=== PATIENT | male | born 1965 | race Caucasian/White ===

== ENCOUNTER 2019-04-04 03:12 | Inpatient (IN) | payer OTHER ==
[2019-04-04] VITALS (7 sets, daily range): BP systolic 116–191; BP diastolic 63–102
[~2019-04-04] VITALS: Ht 182.9 cm; Wt 87.6 kg
--- NOTE | 2019-04-04 03:28 | NUR ---
PATIENT STATES HE CANNOT TURN THE VOICES OFF IN HIS HEAD
[2019-04-04] MEDS ORDERED: ASPIR 8181 MG PO (03:32)
[2019-04-04] MEDS ORDERED: KEPPRA1000 MG PO (03:33)
[2019-04-04] MEDS ORDERED: NALTREXONE HCL50 MG PO (03:33)
[2019-04-04] MEDS ORDERED: SYMBICORT160 MCG/4. INH (03:34)
[2019-04-04] MEDS ORDERED: TRILEPTAL300 MG PO (03:34)
[2019-04-04] MEDS ORDERED: TRIHEXYPHEN2 MG/5 ML PO (03:35)
[2019-04-04] MEDS ORDERED: MELATONIN5 M1 PO (03:35)
[2019-04-04] MEDS ORDERED: MIDODRINE HCL 55 M1 PO (03:35)
[2019-04-04] MEDS ORDERED: QUETIAPINE FUM100 MG PO (03:36)
[2019-04-04] MEDS ORDERED: TRAZODONE HCL100 MG PO (03:36)
[2019-04-04] MEDS ORDERED: NORCO 5-325 TA1 EAC1 PO (03:37)
--- NOTE | 2019-04-04 04:00 | NUR ---
ULTRASOUND TO BEDSIDE AT THIS TIME.
[2019-04-04 04:13] LABS: ABSOLUTE NEUTROPHILS 5.5 thou/uL (1.4-8.2); BASOPHILS 0.7 % (0.0-2.0); EOSINOPHILS 2.5 % (0.0-3.0); HEMATOCRIT 43.3 % (42.0-52.0); HEMOGLOBIN 14.8 gm/dL (14.0-18.0); LYMPHOCYTES 24.2 % (24.0-44.0); MCH 31.5 pg (26.0-34.0); MCHC 34.1 g/dL (28.0-37.0); MCV 92.4 fL (80.0-100.0); MONOCYTES 8.3 % (1.0-8.0); PLATELET COUNT 207 thou/uL (150-400); POLYS 64.3 % (36.0-66.0); RBC 4.68 mil/uL (4.50-6.00); RDW 12.7 % (10.5-14.5); WBC 8.5 thou/uL (4.0-11.0)
[2019-04-04 04:21] LABS: CALCIUM 9.8 mg/dL (8.5-10.1); CREATININE 0.9 mg/dL (0.7-1.3); POTASSIUM 3.4 mmol/L (3.5-5.1)
[2019-04-04 04:31] LABS: TROPONIN-I 0.08 ng/mL (<0.06)
--- NOTE | 2019-04-04 05:19 | NUR ---
PT STATED HE WAS HUNGRY SO THIS NURSE BROUGHT HIM A SANDWHICH FROM THE [facility]
--- NOTE | 2019-04-04 05:28 | NUR ---
PT TO CT
--- NOTE | 2019-04-04 06:51 | NUR ---
CCU NURSE CANNOT TAKE REPORT
--- NOTE | 2019-04-04 06:59 | NUR ---
HAND OFF HAS BEEN SENT
--- NOTE | 2019-04-04 07:12 | NUR ---
CALLED REPORT TO El ESTRADA, IN THE CCU
[2019-04-04 08:11] LABS: CHOLESTEROL 158 mg/dL (<200); HDL CHOLESTEROL 50 mg/dL (>40); LDL CHOLESTEROL 94 mg/dL (<100); TC:HDL 3.2 Ratio (Not establshd); TRIGLYCERIDE 73 mg/dL (<150); VLDL 15 mg/dL (<40)
--- NOTE | 2019-04-04 08:23 | EKG ---
[address] [address] ELECTROCARDIOGRAM REPORT Name: VILMA RODRIGUEZ Room #: 205-P ADM IN M.R.#: [id number] Admission: 04/04/19 Attend Phys: Macho Steen MD Discharge: Date of : 63 Report #: [id number] THIS REPORT FOR: //name// [facility] ED Test Date: 2019-04-04 Test Time: 03:19:52 Pat Name: VILMA RODRIGUEZ Department: Room: [facility] Gender: M Assistant Teacher Primary: RATNA : 1965 Requested By: Vilma Mays Order Number: [id number] MD: Gamaliel Washington Measurements Intervals [place] Rate: 71 P: 53 MO: 130 QRS: 4 QRSD: 90 T: 38 QT: 415 QTc: 451 Interpretive Statements Sinus rhythm Normal tracing No previous ECG available for comparison Electronically Signed On 04-04-2019 8:23:49 CDT by Gamaliel Washington [email or web address] <ELECTRONICALLY SIGNED> By: Gamaliel Washington MD, [facility] 04/04/19 0823 0319 0319 Gamaliel Washington MD, FACC /EPI
--- NOTE | 2019-04-04 10:24 | 2DMMODE ---
[facility] [address] [place] [address] 2 D/M-MODE ECHOCARDIOGRAM Name: IVLMA RODRIGUEZ Room #: 205-P [facility] IN .R.#: [id number] Admission: 04/04/19 Attend Phys: Macho Steen, Discharge: Date of : 63 Date of Service: 04/04/19 [facility] Report #: [id number] THIS REPORT FOR: //name// APPROVED REPORT Study performed: 04/04/2019 09:43:49 EXAM: Comprehensive 2D, Doppler, and color-flow Echocardiogram Patient Location: Bedside Room #: 205 Status: routine BSA: 2.09 HR: 59 bpm BP: 146/93 mmHg Rhythm: Bradycardia Other Information Study Quality: Good Indications COPD Chest Pain Hypertension/HDD 2D Dimensions RVDd: 41.04 mm IVSd: 9.96 (7-11mm) LVOT Diam: 21.07 (18-24mm) LVDd: 39.66 mm PWd: 9.80 (7-11mm) Ascending Ao: 34.80 (22-36mm) LVDs: 29.32 (25-40mm) Aortic Root: 33.13 mm Volumes Left Atrial Volume (Systole) Single Plane 4CH: 33.46 mL Single Plane 2CH: 34.16 mL LA ESV Index: 18.00 mL/m2 Aortic Valve AoV Peak Kip.: 1.20 m/s AO Peak Gr.: 5.74 mmHg LVOT Max P.66 mmHg LVOT Max V: 0.96 m/s CIELO Vmax: 2.78 cm2 Mitral Valve E/A Ratio: 0.8 [facility] [address] [place] [address] 2 D/M-MODE ECHOCARDIOGRAM Name: VILMA RODRIGUEZ Room #: 205-P [facility] IN .R.#: [id number] Admission: 04/04/19 Attend Phys: Macho Steen, Discharge: Date of : 63 Date of Service: 04/04/19 1024 Report #: [id number] MV Decel. Time: 260.74 ms MV E Max Kip.: 0.61 m/s MV A Kip.: 0.81 m/s MV PHT: 75.62 ms IVRT: 138.41 ms Pulmonary Valve PV Peak Kip.: 0.82 m/s PV Peak Gr.: 2.71 mmHg Pulmonary Vein P Vein S: 0.41 m/s P Vein A: 0.28 m/s P Vein D: 0.25 m/s P Vein A Dur.: 101.5 msec P Vein S/D Ratio: 1.64 Left Ventricle The left ventricle is normal size. There is normal LV segmental wall motion. There is normal left ventricular wall thickness. Left ventricular systolic function is normal. The left ventricular ejection fraction is within the normal range. LVEF is 55-60%. Grade I - abnormal relaxation pattern. Right Ventricle The right ventricle is normal size. The right ventricular systolic function is normal. Atria The left atrium size is normal. The right atrium size is normal. Aortic Valve The aortic valve is normal in structure. No aortic regurgitation is present. There is no aortic valvular stenosis. Mitral Valve The mitral valve is normal in structure. There is no mitral valve regurgitation noted. No evidence of mitral valve stenosis. Tricuspid Valve The tricuspid valve is normal in structure. There is no tricuspid valve regurgitation noted. Pulmonic Valve The pulmonary valve is normal in structure. There is no pulmonic valvular regurgitation. [employer] [facility] [address] [place] [address] 2 D/M-MODE ECHOCARDIOGRAM Name: VILMA RODRIGUEZ Room #: 205-P [facility] IN M.R.#: [id number] Admission: 04/04/19 Attend Phys: Macho Steen, Discharge: Date of : 63 Date of Service: 04/04/19 1024 Report #: [id number] The aortic root is normal in size. IVC is not well visualized. Pericardium There is no pericardial effusion. <Conclusion> The left ventricle is normal size. There is normal left ventricular wall thickness. Left ventricular systolic function is normal. Grade I - abnormal relaxation pattern. The right ventricle is normal size. The left atrium size is normal. The aortic valve is normal in structure. There is no mitral valve regurgitation noted. There is no tricuspid valve regurgitation noted. <ELECTRONICALLY SIGNED> By: Manish Menjivar MD 04/04/19 1024 1024 1024 Manish Menjivar MD /INF
[2019-04-04 15:24] LABS: URINE BILIRUBIN NEGATIVE (Negative); URINE BLOOD NEGATIVE (Negative); URINE CLARITY CLEAR; URINE COLOR YELLOW; URINE GLUCOSE-RANDOM* NEGATIVE (Negative); URINE KETONES NEGATIVE (Negative); URINE LEUKOCYTES-REFLEX NEGATIVE (Negative); URINE NITRITE-REFLEX NEGATIVE (Negative); URINE PROTEIN (DIPSTICK) NEGATIVE (Negative); URINE UROBILINOGEN 0.2 E.U./dl (0.2-1.0)
--- NOTE | 2019-04-04 16:06 | NUR ---
PT ADMITED FROM ER. ADMISSION HX AND ASSESSMENT COMPLETED. ORIENTED TO THE ROOM AND THE CALL LIGHT SYSTEM. ASSESSMENT CHARTED. PT ALERT AND ORIENTED. VSS. REPORT HAVING LOWER LEG PAIN WITH MOVEMENT. NO CARDIAC OR RESPIRATORY DISTRESS NOTED. WILL CONTINUE TO MONITOR.
[2019-04-05] VITALS (8 sets, daily range): BP systolic 126–171; BP diastolic 78–102
--- NOTE | 2019-04-05 02:48 | NUR ---
ASSESSMENT CHARTED. VSS. PT DENIES CONCERN. LEG PAIN OFF AND ON. LOVENOX PER EMAR. SLEEPING WELL THROUGHOUT THE NIGHT. WILL CONTINUE TO MONITOR AND WITH POC.
[2019-04-05 04:30] LABS: CALCIUM 9.2 mg/dL (8.5-10.1); CREATININE 1.1 mg/dL (0.7-1.3); MAGNESIUM 1.9 mg/dL (1.8-2.4); POTASSIUM 4.2 mmol/L (3.5-5.1)
[2019-04-05 04:43] LABS: ABSOLUTE NEUTROPHILS 4.3 thou/uL (1.4-8.2); BASOPHILS 0.7 % (0.0-2.0); HEMATOCRIT 41.8 % (42.0-52.0); HEMOGLOBIN 14.1 gm/dL (14.0-18.0); LYMPHOCYTES 29.9 % (24.0-44.0); MCH 31.9 pg (26.0-34.0); MCHC 33.7 g/dL (28.0-37.0); MCV 94.5 fL (80.0-100.0); MONOCYTES 8.2 % (1.0-8.0); PLATELET COUNT 213 thou/uL (150-400); POLYS 57.2 % (36.0-66.0); RBC 4.43 mil/uL (4.50-6.00); RDW 13.1 % (10.5-14.5); WBC 7.6 thou/uL (4.0-11.0)
[2019-04-05] MEDS ORDERED: XARELTO20 MG PO (10:08)
[2019-04-05] MEDS ORDERED: NORVASC5 MG PO (10:08)
--- NOTE | 2019-04-05 11:58 | NUR ---
met with patient he admits with CP elevated tropnin. Patient resident of [facility]. He reports he cont to smoke and ambulates independently. He reports can update his dtr she may be at work but can leave a message. Plan return to [facility] once stable. Sp with RN who reports plan dc today. DC operations planner to facilitate dc return to [facility].
--- NOTE | 2019-04-05 13:34 | NUR ---
PT DISCHARGING TODAY BACK TO [facility] FAXED DC ORDERS/SUMMARY TO FACILITY SPOKE WITH DENISE IN ADM SHE RECEIVED DC ORDERS AND TRANSPORTATION ARRANGED WITH [facility] TRIP # [id number] 2N TO PROVIDE WC FOR [facility] TO TAKE PT TO FACILITY AND THEY WILL RETURN WC BACK TO UNIT TODAY. UNIT NOTIFIED OF TRANSPORT TIME 3 HR WINDOW SO THEY WILL PICK PT UP BY 1530 TODAY. CHART COPY PER US. RN TO CALL REPORT TO [phone].
--- NOTE | 2019-04-05 17:54 | NUR ---
ASSESSMENT CHARTED. PT ALERT AND ORIENTED. VSS. REPORT FEELING BETTER TODAY. SEEN BY DR. FERRIS. ORDERS GIEVN TO DISCHARGE PT TO HOME. DISCHARGE INSTRUCTIONS CALLED IN TO THE FACILITY. PT LEFT THE FACILITY WITH HIS BELONGINGS.
== END 2019-04-05 17:54 | DRG 313 ==
LOC: ER 03:12 → 2N 06:24 → EROBS 06:24 → 2N 07:43
PROVIDERS: Emergency Medicine; Nurse Practitioner; ADMIT Hospitalist
DX: R07.89 Other chest pain (principal); I82.412 Acute embolism and thrombosis of left femoral vein; I82.432 Acute embolism and thrombosis of left popliteal vein; E87.1 Hypo-osmolality and hyponatremia; I10 Essential (primary) hypertension; E11.9 Type 2 diabetes mellitus without complications; J44.9 Chronic obstructive pulmonary disease, unspecified; G40.909 Epilepsy, unspecified, not intractable, without status epilepticus; F25.9 Schizoaffective disorder, unspecified; F41.9 Anxiety disorder, unspecified; R29.6 Repeated falls; I16.0 Hypertensive urgency; E87.6 Hypokalemia; F31.9 Bipolar disorder, unspecified; F17.210 Nicotine dependence, cigarettes, uncomplicated; Z79.82 Long term (current) use of aspirin; Z79.899 Other long term (current) drug therapy; Z88.8 Allergy status to other drugs, medicaments and biological substances; Z91.030 Bee allergy status; Z82.49 Family history of ischemic heart disease and other diseases of the circulatory system; Z71.6 Tobacco abuse counseling
CPT/HCPCS: 10081

== ENCOUNTER 2019-05-06 22:07 | Emergency (ER) | payer OTHER ==
[~2019-05-06] VITALS: Ht 182.9 cm; Wt 86.2 kg
[~2019-05-06 22:07] MED LIST: ASPIR 8181 MG PO; KEPPRA1000 MG PO; MELATONIN5 M1 PO; MIDODRINE HCL 55 M1 PO; NALTREXONE HCL50 MG PO; NORCO 5-325 TA1 EAC1 PO; NORVASC5 MG PO; QUETIAPINE FUM100 MG PO; SYMBICORT160 MCG/4. INH; TRAZODONE HCL100 MG PO; TRIHEXYPHEN2 MG/5 ML PO; TRILEPTAL300 MG PO; XARELTO20 MG PO
[2019-05-07 01:36] VITALS: BP 129/76
== END 2019-05-07 02:29 ==
LOC: ER 22:07
DX: M79.662 Pain in left lower leg (principal); J44.9 Chronic obstructive pulmonary disease, unspecified; F25.9 Schizoaffective disorder, unspecified; F41.9 Anxiety disorder, unspecified; F31.9 Bipolar disorder, unspecified; Z91.030 Bee allergy status; Z88.8 Allergy status to other drugs, medicaments and biological substances

== ENCOUNTER 2019-05-15 07:42 | Emergency (ER) | payer OTHER ==
[~2019-05-15] VITALS: Ht 182.9 cm; Wt 84.9 kg
[2019-05-15 08:07] LABS: HEMATOCRIT 40.3 % (42.0-52.0); HEMOGLOBIN 13.6 gm/dL (14.0-18.0); MCH 31.2 pg (26.0-34.0); MCHC 33.7 g/dL (28.0-37.0); MCV 92.3 fL (80.0-100.0); RBC 4.37 mil/uL (4.50-6.00); RDW 12.7 % (10.5-14.5); WBC 9.5 thou/uL (4.0-11.0)
[2019-05-15 08:15] LABS: CALCIUM 10.4 mg/dL (8.5-10.1); CREATININE 0.9 mg/dL (0.7-1.3); POTASSIUM 3.8 mmol/L (3.5-5.1)
[2019-05-15 08:21] LABS: ALBUMIN 3.7 g/dL (3.4-5.0); DIRECT BILIRUBIN 0.1 mg/dL (<0.1-0.3); TOTAL BILIRUBIN 0.3 mg/dL (<0.1-1.0); TOTAL PROTEIN 7.1 g/dL (6.4-8.2)
[2019-05-15] MEDS ORDERED: KRISTALOSE20 GM PO (10:48)
[2019-05-15 10:57] VITALS: BP 147/82
== END 2019-05-15 11:04 | disposition home or self-care (01) ==
LOC: ER 07:42
PROVIDERS: Emergency Medicine
DX: K59.00 Constipation, unspecified (principal); R10.9 Unspecified abdominal pain; R11.2 Nausea with vomiting, unspecified; F31.9 Bipolar disorder, unspecified; F41.9 Anxiety disorder, unspecified; F25.9 Schizoaffective disorder, unspecified; J44.9 Chronic obstructive pulmonary disease, unspecified; F17.210 Nicotine dependence, cigarettes, uncomplicated; Z91.030 Bee allergy status; Z88.8 Allergy status to other drugs, medicaments and biological substances

== ENCOUNTER 2019-06-09 17:11 | Emergency (ER) | payer OTHER ==
[~2019-06-09] VITALS: Ht 182.9 cm; Wt 83.5 kg
--- NOTE | ~2019-06-09 | EMS ---
[address] [address] EMS Patient Care Report Name: VILMA RODRIGUEZ Room #: REG KIYA Rousseau#: [id number] Admission: 06/09/19 Attend Phys: Discharge: Date of : 63 Report #: [id number] THIS REPORT FOR: //name// Report Transmitted: 06/09/2019 17:14 EMS Care Summary [place], [place]/[facility] Incident [phone] @ 06/09/2019 16:35 Incident Location [address] [facility] 312 Patient VILMA RODRIGUEZ Male, 54 Years 1965 Patient Address [address] [place], [place] [address] [place] [id number] Patient History Other,Chronic Obstructive Pulmonary Disease (COPD),Hypertension,Seizures,Gastro-Esophageal Reflux Disease (GERD),Bipolar II Disorder,Depression,Anxiety,Schizoaffective Disorder, Patient Allergies Prednisone, Patient Medications Aspirin, Trazodone, Xarelto, Tylenol, Symbicort, Levetiracetam, Melatonin, Amlodipine, Chief Complaint SOA Disposition Transported No Lights/Orange Dispatch Reason Breathing Problem Transported To [facility] [address] [place] [address] EMS Patient Care Report Name: VILMA RODRIGUEZ Room #: REG ER [place]#: [id number] Admission: 06/09/19 Attend Phys: Discharge: Date of : 63 Report #: [id number] PT FOUND LYING IN BED. [facility] P28 ALSO RESPONDED. PT STATES THAT HE IS SOA ND FEELS LIKE HE IS GOING TO . PT ALSO STATES THAT HIS R KNEE BUCKLED EARLIER AND IT HURTS. PT IS ABLE TO SPEAK IN COMPLETE SENTENCES WITHOUT DIFFICULTY. LUNGS ARE CLEAR. STAFF STATES PT CALLS 911 HIMSELF AND THREATENS STAFF WITH CALLING THE POLICE BECAUSE HE WANTS TO GO TO THE ED. STAFF STATES THAT PT VITALS HAVE BEEN CHECKED SEVERAL TIMES TODAY AND ALL FOUND TO BE WNL. STAFF STATES THAT THIS IS A BEHAVIORAL PATTERN FOR PT. STAFF STATES THAT PT WILL FORCE HIMSELF TO VOMIT IN THE TRASH CAN. TRANSPORTED WITHOUT INCIDENT. Initial Vitals @16:54P: 91,R: 18,BP: 156/110,Pain: 0/10,GCS: 15,Glucose: 87,SpO2: 94,Revised Trauma: 12,KS Suspected: false Assessments @16:44MENTAL:No Abnormalities,SKIN:No Abnormalities,HEENT:Head/Face: No Abnormalities,Eyes: No Abnormalities,Neck/Airway: No Abnormalities,LUNG SOUNDS:ABDOMEN:PELVIS//GI:EXTREMITIES:PULSE:NEURO:No Abnormalities, Impression Shortness of breath Procedures @16:44ALS AssessmentResponse: UnchangedSucceeded Timeline 16:32,Call Received 16:32,Dispatch Notified 16:35,Dispatched 16:36,En Route 16:40,On Scene 16:44,At Patient 16:44,ALS Assessment,Response: UnchangedSucceeded, 16:54,BP: 156/110 M,PULSE: 91,RR: 18 R,SPO2: 94 Ox,ETCO2: ,B,PAIN: 0,GCS: 15, 16:59,Depart Scene 17:08,At Destination 17:21,Call Closed Disclaimer v1.1 Copyright 2019 [employer] This EMS Care Summary contains data elements from the applicable legal record (which may be displayed differently). It is designed to provide pertinent information for the following purposes: continuity of care, clinical quality, and state data reporting. The complete legal record is available to ED staff and administrators of the receiving hospital in [facility] Patient Tracker. All data is provided "as is."
[~2019-06-09 17:11] MED LIST changes: +KRISTALOSE20 GM PO
[2019-06-09 18:05] LABS: URINE BILIRUBIN NEGATIVE (Negative); URINE BLOOD NEGATIVE (Negative); URINE CLARITY CLEAR; URINE COLOR YELLOW; URINE GLUCOSE-RANDOM* NEGATIVE (Negative); URINE KETONES TRACE (Negative); URINE LEUKOCYTES-REFLEX NEGATIVE (Negative); URINE NITRITE-REFLEX NEGATIVE (Negative); URINE PROTEIN (DIPSTICK) NEGATIVE (Negative); URINE SPECIFIC GRAVITY <= 1.005 (1.005-1.035); URINE UROBILINOGEN 0.2 E.U./dl (0.2-1.0)
[2019-06-09 18:20] LABS: AMP/METHAMP Negative (Negative); BARBITURATES Negative (Negative); BENZODIAZEPINES Negative (Negative); COCAINE Negative (Negative); METHADONE Negative (Negative); OPIATES Negative (Negative); PCP Negative (Negative)
[2019-06-09 18:49] LABS: ABSOLUTE NEUTROPHILS 7.4 thou/uL (1.4-8.2); BASOPHILS 0.7 % (0.0-2.0); EOSINOPHILS 1.3 % (0.0-3.0); HEMATOCRIT 43.2 % (42.0-52.0); HEMOGLOBIN 14.5 gm/dL (14.0-18.0); LYMPHOCYTES 20.3 % (24.0-44.0); MCH 31.1 pg (26.0-34.0); MCHC 33.5 g/dL (28.0-37.0); MCV 92.7 fL (80.0-100.0); MONOCYTES 8.5 % (1.0-8.0); POLYS 69.2 % (36.0-66.0); RBC 4.66 mil/uL (4.50-6.00); RDW 12.6 % (10.5-14.5); WBC 11.4 thou/uL (4.0-11.0)
[2019-06-09 19:02] LABS: ANION GAP 8 mmol/L (7-16); BUN 6 mg/dL (7-18); CALCIUM 9.3 mg/dL (8.5-10.1); CHLORIDE 95 mmol/L (98-107); CO2 27 mmol/L (21-32); CREATININE 0.7 mg/dL (0.7-1.3); GLUCOSE 94 mg/dL (74-106); POTASSIUM 4.3 mmol/L (3.5-5.1); SODIUM 130 mmol/L (136-145)
[2019-06-09 19:08] LABS: ALBUMIN 3.9 g/dL (3.4-5.0); DIRECT BILIRUBIN < 0.1 mg/dL (<0.1-0.3); LIPASE 119 U/L (73-393); SGOT 57 U/L (15-37); SGPT 52 U/L (30-65); TOTAL BILIRUBIN 0.8 mg/dL (<0.1-1.0); TOTAL PROTEIN 7.7 g/dL (6.4-8.2)
[2019-06-09 19:24] LABS: APTT 20.8 Seconds (24.5-32.8); PROTIME 10.3 Seconds (9.3-11.4)
[2019-06-09 19:53] LABS: PLATELET COUNT 161 thou/uL (150-400)
[2019-06-09 22:15] VITALS: BP 143/92
== END 2019-06-09 22:15 | disposition home or self-care (01) ==
LOC: ER 17:11
PROVIDERS: Emergency Medicine
DX: R06.00 Dyspnea, unspecified (principal); R45.851 Suicidal ideations; R52 Pain, unspecified; F25.9 Schizoaffective disorder, unspecified; J44.9 Chronic obstructive pulmonary disease, unspecified; F31.9 Bipolar disorder, unspecified; F17.210 Nicotine dependence, cigarettes, uncomplicated; Z88.8 Allergy status to other drugs, medicaments and biological substances; Z91.030 Bee allergy status

== ENCOUNTER 2019-06-16 18:56 | Inpatient (IN) | payer OTHER ==
[~2019-06-16] VITALS: Ht 182.9 cm; Wt 79.6 kg
[2019-06-16 18:57] VITALS: BP 169/84
[2019-06-16 19:44] LABS: BASOPHILS 0.8 % (0.0-2.0); EOSINOPHILS 2.4 % (0.0-3.0); HEMOGLOBIN 13.9 gm/dL (14.0-18.0); LYMPHOCYTES 18.4 % (24.0-44.0); MCH 31.6 pg (26.0-34.0); MCHC 33.1 g/dL (28.0-37.0); MCV 95.4 fL (80.0-100.0); MONOCYTES 7.6 % (1.0-8.0); PLATELET COUNT 191 thou/uL (150-400); POLYS 70.8 % (36.0-66.0); RBC 4.41 mil/uL (4.50-6.00); RDW 13.1 % (10.5-14.5); WBC 8.5 thou/uL (4.0-11.0)
[2019-06-16 20:20] LABS: CALCIUM 9.8 mg/dL (8.5-10.1); CREATININE 0.7 mg/dL (0.7-1.3)
[2019-06-16 20:24] LABS: POTASSIUM 5.3 mmol/L (3.5-5.1)
[2019-06-16 21:09] LABS: URINE BILIRUBIN 1+ (Negative); URINE BLOOD TRACE (Negative); URINE CLARITY CLEAR; URINE COLOR YELLOW; URINE GLUCOSE-RANDOM* NEGATIVE (Negative); URINE KETONES 1+ (Negative); URINE LEUKOCYTES-REFLEX NEGATIVE (Negative); URINE NITRITE-REFLEX NEGATIVE (Negative); URINE PROTEIN (DIPSTICK) TRACE (Negative); URINE SPECIFIC GRAVITY >= 1.030 (1.005-1.035); URINE UROBILINOGEN 0.2 E.U./dl (0.2-1.0)
[2019-06-16 21:12] LABS: ICTOTEST (BILI CONFIRMATORY) Positive (Negative)
[2019-06-16 21:28] LABS: AMP/METHAMP Negative (Negative); BARBITURATES Negative (Negative); BENZODIAZEPINES Negative (Negative); COCAINE Negative (Negative); METHADONE Negative (Negative); OPIATES POSITIVE (Negative); PCP Negative (Negative)
[2019-06-16 23:27] VITALS: BP 176/96
[2019-06-17] MEDS ORDERED: MELOXICAM15 MG PO (00:08)
[2019-06-17] MEDS ORDERED: ULTRAM 50MG TAB50 MG PO (00:09)
[2019-06-17 00:10] VITALS: BP 160/50
[2019-06-17 01:10] VITALS: BP 176/96
--- NOTE | 2019-06-17 01:17 | NUR ---
PT ADMITTED TO UNIT THROUGH [facility] ED. PRESENTED WITH DEPRESSION AND SI. LONG HX ON MENTAL ILLNESS. DX WITH BIPOLAR,SCHIZOAFFECTIVE,MDD. SI VAGUE. HAS RECENTLY BEEN USING MORE ETOH. ARRIVED UNIT IN . COOPERATIVE WITH PHYSICAL ASSESSMENT. MED HX OF SEIZURES AND COPD. HE IS A SMOKER. ADMITS TO PREVIOUS HX OF MARIJUANA,SPEED, AND ETOH USE FOR MANY YEARS. TANGENTIAL AND HARD TO KEEP HIM ON TRACK WITH QUESTIONS TO RECENT DECOMPENSATION. LIVES AT [facility], AND EXPECTS TO RETURN THEIR WHEN "MEDS ARE ADJUSTED". IT DIRECTOR HAS SEEN PT AND HAS NUMEROUS SOMATIC COMPLAINTS. CLAIMS TO TAKE OXYCONTIN FOR "CHRONIC PAIN". RESTING COMFORTABLY AT THIS TIME.
[2019-06-17 08:20] VITALS: BP 143/88
--- NOTE | 2019-06-17 10:21 | NUR ---
HAS BEEN UP IN DAYROOM, HE IS ALERT AND ORIENTED TO NAME AND PLACE, HE IS VERY TALKATIVE AND TALKS ALOT ABOUT WHERE HE LIVES AND ALL HIS FRIENDS AT THE FACILITY, HE DENIES SI/HI/AVH, WASNT SURE WHY HE MADE ANY SI STATEMENTS, HE STATED AFTER GROUP HE WAS "WOOBLY AND WEAK" SO HE IS CURRENTING SITTING IN A W/C FOR AMBULATION. HE RATES DEPRESSION LOW, AND DID ASK ABOUT ATIVAN FOR ANXIETY, EXPLAINED THE ATIVAN WAS A 1 TIME ORDER FOR LAST EVENING, HE IS COOPERATIVE WITH MEALS AND MEDS. WILL CONTINUE TO MONITOR FOR BEHAVIORS AND SAFETY.
[2019-06-17 20:10] VITALS: BP 181/88
--- NOTE | 2019-06-18 00:26 | NUR ---
Care assumed of patient at 1915: Patient alert and oriented x4. Patient seated in w/c at start of shift, asking for staff to push him around in w/c. Patient was admitted previous night and was up ad salima with no use of assistive devices. Nurse walked with patient. Gait steady, good balance. Patient reports that he is afraid he will fall but can't give a reason as to why he would fall. Patient provided a walker to use. Patient educated that he has to keep mobile and keep his muscles moving. Patient irritable and frustrated with nurse but was able to calm down independently. Patient visualized ambulating about the unit and day room for a couple hours afterward with no difficulty. Patient reported a headache and was provided PRN Tylenol. Patient sleeping at one hour follow up. Patient took HS medication without difficulty. Patient ate 100% HS snack. Patient hyperverbal at times. Interacting well with another peer. Patient denies SI/HI/AH/VH. Denies any anxiety or depression. No s/s of delusional or paranoia behaviors observed. Patient becomes agitated primarily when rules are explained or enforced. No physical or verbal aggression. Patient reported that he was frustrated with another peer due to them yelling. Other peer had not been yelling at that point which he was reminded of. Patient then brought belongings to nurses station and requested to sleep on the couch. When asked why, he stated that he couldn't sleep because of said peer. However, peer was seated in the day room at that time. Patient has some attention seeking tendencies this evening. Required re-direction a couple times. Once patient laid down in his bed, he was able to fall asleep without difficulty and has been sleeping since.
[2019-06-18 07:47] VITALS: BP 166/71
[2019-06-18 20:18] VITALS: BP 158/93
--- NOTE | 2019-06-19 04:07 | NUR ---
ASSUMED CARE @ 19:15 ON 06/18/19, IN DAY ROOM AND HALLWAY, AMBULATING WITH WALKER WITH STEADY GAIT NOTED. UPON ASSESSMENT FUND TO BE A&OX2 TO PERSON AND PLACE. TALKES EXTENSIVELY AND HYPERVERVERBAL ABOUT HIS FACILITY. DENIES A HEADACHE THIS EVENING. DENIES SI, HI, A/V HALLUCINATIONS. AWAKENED IN THE MIDDLE OF THE NOC AND ASKED FOR THE TV TO BE TURNED ON WHEN THE [facility] RULES REGARDING TV OFF @ 10PM WERE EXPLAINED, PT BECAME AGITATED. PROVIDED A MAGAZINE AND SPORTS PAGE, WHICH HE READ. HE RETURNED TO BED SEVERAL HOURS LATER. PT LOCKS HIS DOOR, AND WHEN ASKED TO LEAVE IT CRACKED OPEN HE GIVES A LIST OF HIS POSSESSIONS THAT ARE IN HIS ROOM. ASKED IF HE WAS AFRAID THAT SOMEONE WOULD TAKE HIS CLOTHES, HE RESPONDED, YES THAT THESE WERE HIS ONLY CLOTHES. DOOR UNLOCKED FOR PATIENT. WILL CONTINUE TO MONITOR Q 12 MINUTES FOR PATIENT SAFETY.
[2019-06-19 06:11] VITALS: BP 158/93
--- NOTE | 2019-06-19 07:00 | NUR ---
Assumed care of patient this am. Patient awake in activity area sitting at table. Patient calm, content and cooperative. Patient states that he has pain in his neck. Patient ambulates without assistence. Patient takes medications whole. Patient states that he has borrowed clothes from his friend. Patients assessment shows clear breath sounds, active bowel sounds, and s1 s2 present. Patient feeds himself and is active. Patients affect is relaxed.
[2019-06-19 07:30] VITALS: BP 129/84
[2019-06-19 09:05] VITALS: BP 129/84
--- NOTE | 2019-06-19 15:57 | NUR ---
Arlyn met with pt and Dr Ferraro to witness the discussion about 96 hour hold. Pt reported that he wanted to go back to [facility] but would be willing to stay and follow this Dr's advice. Dr ferraro also spoek with Tomasa at [facility] who reported that this pt was still permitted to return and has never been violent but will cycle through his kya and readmit himself to hospitals. Pt understands how to ask to d/c but will be placed on a 96 hour hold if he asks to leave A.
--- NOTE | 2019-06-19 18:15 | NUR ---
Patient wanted to be discharged today. Patient was irritable and spoke with multiple times regarding this topic.
[2019-06-19 19:10] VITALS: BP 146/90
[2019-06-19 23:35] VITALS: BP 146/90
[2019-06-19 23:44] VITALS: BP 146/90
--- NOTE | 2019-06-20 01:27 | NUR ---
PATIENT WAS IN DINING ROOM TILL 2300 TONIGHT. HE WAS SITTING UP WATCHING TV. HIS LEFT ANKLE/FOOT HAVE SOME BRUISING AND SLIGHT SWELLING FROM HIS FOOT BEING RAN OVER BY A WC BEFORE HE CAME IN TO THE HOSPITAL. HE STATES HE WANTS A WC BECAUSE BOTH HIS LEGS HURT AT TIMES. ICE APPLIED TO LEFT ANKLE AND IT WAS ELEVATED. PATIENT TOOK MEDS WITHOUT PROBLEM WITH WATER. PATIENT WAS WEARING 2 PAIRS OF JEANS, 2 SHIRTS, AND 2 PAIRS OF SOCKS. HE LIKES TO KEEP HIS ROOM DOOR CLOSED AND LOCKED, STATING THAT HE HAS SOME CLOTHES THAT BELONG TO A FRIEND OF HIS AND HE DOESN'T WANT TO LOSE THEM. HE WAS UPSET WITH THIS NURSE BECAUSE HE COULD NOT KEEP HIS ROOM DOOR CLOSED AND LOCKED WHILE SLEEPING TONITE. WE DID ARRANGE TO KEEP IT CLOSED MUCH POSSIBLE WITHOUT IT LATCHING AND LET HIM KNOW THAT WE WILL CHECK ON HIM EVERY 10 MINUTES AT NIGHT. HE WAS MAD AND STATED THAT HE "DOESN'T NEED TO BE HERE AND THAT HE COULD'VE STAYED WHERE HE WAS AND GOTTEN THE SAME KIND OF MEDICAL TREATMENT, AND ALL OF THIS IS STUPID!" HE QUIETED DOWN AND WENT TO SLEEP. PATIENT SEEMS TO SEEK ATTENTION WHEN HE CAN GET IT. GAVE HIM HIS MEDS WITH WATER AND THEN HE SAID HE NEEDED YOGURT WHEN HE HAD HIS MOUTH FULL. BROUGHT HIM WHAT WE HAD WHICH WAS PUDDING. HE ATE THAT. THEN HE WANTED TO CHANGE THE CHANNELS ON TV, GET AN ICE PACK FOR HIS FOOT. WANTED ROOM DOOR OPENED SEVERAL TIMES BEFORE BED TIME BECAUSE HE WOULD GO BACK AND FORTH. WILL CONTINUE TO MONITOR.
[2019-06-20 09:00] VITALS: BP 133/81
--- NOTE | 2019-06-20 11:49 | NUR ---
NURYS contacted [facility] with [facility]. No answer. Lft msg. NURYS faxed updated info and medication list to [facility] at [phone]. NURYS team will continue to follow pt during his stay.
--- NOTE | 2019-06-20 13:00 | NUR ---
PATIENT WAS SITTING IN DAYROOM WHEN CARE ASSUMED. PATIENT TOOK ALL MORNING MEDICATION WHOLE WITHOUT DIFFICULTY. PATIENT IS EATING MEALS, AND DRINKING FLUID WELL. PATIENT DENIES SUICIDAL/HOMICIDAL IDEATION, "I WAS BEFORE I CAME HERE, BUT NOT ANYMORE". PATIENT DENIES AUDITORY/VISUAL HALLUCINATION. PATIENT RATED BOTH DEPRESSION/ANXIETY 3/10. PATIENT WENT BACK TO BED AFTER BREAKFAST, AND LCOKED THE DOOR, REDIRECTED THAT ROOMS NEED TO BE OPEN WHILE PATIENTS' ARE IN ROOM FOR SAFETY REASONS, PATIENT VERBALIZES UNDERSTANDING. AFFECT IS BLUNTED, MOOD IS DEPRESSED, NO SIGN OF ACUTE DISTRESS NOTED AT THIS TIME. PATIENT IS CURRENTLY GETTING SHAVED BY STAFF, WILL MONITOR FOR SAFETY.
[2019-06-20 20:11] VITALS: BP 147/91
[2019-06-20 20:43] VITALS: BP 147/91
--- NOTE | 2019-06-21 01:41 | NUR ---
ERIBERTO PATIENT WAS SITTING IN THE DINING ROOM WHEN I CAME ON SHIFT. HE HAD AN ICE ILA ON HIS LEFT KNEE AND ANKLE. WHEN I WENT TO ASSESS HIM, HE SAID HE NEEDED AN ICE ILA ON THE RIGHT KNEE AND ANKLE. HE THINKS HE NEEDS A WC TO USE BECAUSE HIS LEFT ANKLE/FOOT IS SORE FROM AN INJURY BEFORE HE CAME TO HOSPITAL. I TOLD PATIENT THAT HE DID NOT NEED WC. PT/OT ARE WORKING WITH HIM AND I TOLD HIM HE NEEDS TO WALK TO GET RID OF THE STIFFNESS/SORENESS IN HIS LEGS. PATIENT THEN ASKED A OPERATIONS WELDER FOR A FACE MASK. I ASKED WHAT HE WANTED IT FOR AND HE SAID THAT HE DIDN'T WANT TO GET SICK AND THOUGHT HE SHOULD HAVE ONE. I TOLD HIM HE DID NOT NEED ONE. NO ONE ON THIS UNIT IS COUGHING OR SHOWING SIGNS OF INFECTION. HE HELD A KLEENEX OVER HIS MOUTH AND NOSE THEN FOR A LONG TIME. WHEN I WENT TO GIVE HIM HIS MEDS HE ASKED ME TO OPEN HIS YOGURT FOR HIM. I TOLD HIM THAT HE IS CAPABLE OF OPENING HIS YOGURT. HE DIDN'T WANT TO TAKE HIS HAND DOWN FROM HOLDING THE KLEENEX OVER HIS MOUTH AND NOSE. HE OPENED THE YOGURT AND TOOK HIS PILLS WHOLE WITHOUT INCIDENT. LATER PATIENT HAD MOVED FROM WHERE HE WAS SITTING AND I WAS WORKING WITH ANOTHER PATIENT, HE ASKED ME TO GO "GET HIS WATER FOR HIM." AGAIN, I EXPLAINED TO HIM THAT HE IS PERFECTLY CAPABLE OF GETTING UP OUT OF HIS CHAIR AND WALKING ACCROSS THE ROOM TO GET HIS WATER. HE THEN GOT UP AND DID SO. PATIENT SEEMS TO ADD MORE AND MORE SOMATIC SYMPTOMS EACH TIME I TALK WITH HIM. I TRIED CHANGING THE CONVERSATION WHEN ASSESSMENT OF SYMPTOMS WERE NOT APPEARING TO BE HE SAID. PATIENT WOULD QUICKLY FORGET HIS SYMPTOMS WHEN TALKING WITH HIM ABOUT SPORTS. PATIENT WALKS WITHOUT A PROBLEM AND NO SIGNS OF PAIN/STIFFNESS. PATIENT IS VERY IRRITATED BY ANOTHER PATIENT ON THE UNIT. HE DID SPEAK WITH ME ERIBERTO AND SAY THAT HE THINKS THAT PATIENT IS AFRAID OF HIM BECAUSE SHE TOLD HIM ONCE THAT HE LOOKED LIKE HER THAT LIKES TO BEAT HER UP. HE PUTS COTTON BALLS IN HIS EARS AT NIGHT TO BLOCK OUT HER SCREAMING AND LOUD BEHAVIORS. I TOLD HIM WE'LL DO OUR BEST TO KEEP HER QUIETER TONMICHELLE. PATIENT DECLINED HIS 0100 RESPIRATORY TREATMENT BUT SAID HE WOULD TAKE HIS 0600 ONE. PATIENT IS INDEPENDENT WITH HIS ADL'S. WILL CONTINUE TO MONITOR. NO SI/HI TONIGHT.
--- NOTE | 2019-06-21 06:47 | NUR ---
PATIENT MAD THIS MORNING BECAUSE I TOLD HIM I WAS CUTTING OFF HIS ICE BAGS THAT ARE TIED ON HIS LEG BUT HAVE FALLEN AND ARE DOWN AROUND HIS ANKLES AND HAVE STRINGS DANGLING FROM THEM AND IS A FALL HAZARD. HE GOT ANGRY, AND SAID, "DON'T WORRY ABOUT IT! JUST FORGET IT! LEAVE THEM ALONE!" PATIENT WAS HEADING TO HIS ROOM. WHEN I WENT TO CUT THEM OFF, HE WAS THEN IN THE DINING ROOM. HE HAD TAKEN THEM OFF AND LEFT THEM IN HIS ROOM. HE WAS STILL ANGRY AND I ASKED IF HE COULD TELL ME WHAT HE WAS UPSET ABOUT. HE SAID HE HAD A "FUCKING SEIZURE THE OTHER DAY WHILE SITTING IN A RECLINER BY THE NURSE STATION AND NO ONE DID ANYTHING FOR HIM. HE STATES THIS IS WHY HE NEEDS A RECLINER OR [place] BACK . IT HAS BEEN BROUGHT TO OUR ATTENTION THAT HIS SEIZURE DIAGNOSIS IS QUESTIONABLE. I DID TELL HIM HIS NURSE WORKING WITH HIM THAT DAY IS VERY GOOD AND WOULD HAVE ADDRESSED IT IF SHE SAW IT WHICH HE SAID SHE DID.
--- NOTE | 2019-06-21 07:00 | NUR ---
Assumed care of patient this am. Patient in good spirits. Patients affect soft. Patient ambulates without assisstance. Patient takes medications whole with fluids. Patient had a bowel movement this am. Patients assessment reveals clear breath sounds, active bowel sounds, and s1 s2 upon auscultation. Patient wearing 2 pairs of clothes. Patient stated that he was bit on the face by a brown recluse that he punched but the spider was playing . Patients thoughts are scattered at times.
[2019-06-21 07:30] VITALS: BP 120/80
[2019-06-21 11:39] VITALS: BP 120/80
--- NOTE | 2019-06-21 15:50 | NUR ---
NURYS spoke with Paula with [facility] who said she can have transportation to pick pt up at hospital at 1330 on 06/23. NURYS provided her with recent updates on patient. SW team will continue to follow pt during his stay.
[2019-06-21 19:30] VITALS: BP 139/80
--- NOTE | 2019-06-22 04:40 | NUR ---
1909-Report received from day shift nurse and care assumed. He was watching television in the evening, cooperative, and compliant with HS meds. He c.o. of his left wrist having discomfort from an "old injury" per pt. No swelling, range of motion wnl. He is A/O x 4, denied any SI, and slept well tonite.
[2019-06-22 09:00] VITALS: BP 116/82
[2019-06-22 09:13] VITALS: BP 116/82
--- NOTE | 2019-06-22 09:40 | NUR ---
0700: Assumed care this morning. Pt calm and cooperative. Seated at the activity room. Good appetite. Took medications with no issues. Denies SI/HI. he is looking forward to be discharged as the physician told him. Leaving today. Will continue with the plan of care.
--- NOTE | 2019-06-22 16:55 | NUR ---
Pt had a great afternoon. DischaRGE IS TOMORROW. pT IS CALM AND COOPERATIVE. tAKING MEDICATIONS AND FOOD WELL. WILL CONTINUE WITH THE PLAN OF CARE.
--- NOTE | 2019-06-22 17:51 | NUR ---
NURYS received a report from nursing that pt, even after speaking with doctor, insists he will be discharging today at 1300. NURYS spoke with pt and explained that [facility] cannot accept him until tomorrow. He asked SW if she was sure, and she said unless [place] changes something he will d/c tomorrow. Pt calmed down after she explained that. SW team will continue to follow pt during his stay.
[2019-06-22 20:08] VITALS: BP 133/76
--- NOTE | 2019-06-22 22:49 | NUR ---
PT SITTING IN DAY ROOM WATCHING TV, SMILING AND TALKING WITH STAFF AND PEERS. PT COMPLIANT WITH MEDS AND SNACK. PT VERBALIZED ANXIETY RELATED TO FEMALE PEER YELLING OUT, MALE PEER WANDERING AND FALLING, THROUGHOUT THE DAY SHIFT. PT ASKED FOR DOOR TO BE LOCKED WHEN HE IS NOT IN IT, SO PEER DOES NOT WANDER INTO HIS ROOM. GAIT STEADY, AMBULATES WITH WALKER.
[2019-06-23 08:49] VITALS: BP 123/82
--- NOTE | 2019-06-23 12:22 | NUR ---
Plan on discharge this afternoon. No s/o distress. States he has pain in ankles, knees and back. Rates pain a 10, and decreases to an 8 prior to Tylenol. Up in day room watching TV and conversing with peers/staff. Denies SI/HI. Orientated X 4. Breath sounds clear t/o, bilaterally equal. Reg HR auscultated. Color pink with brisk capillary refill and palpable peripheral pulses. Active bowel sounds over soft, rounded abdomen. 1230 Dr. Ferraro speaking with pt. Discharge planned between 1 and 1:30 pm. Report called to Lex at 1120.
[2019-06-23] MEDS ORDERED: TYLENOL EXTRA500 MG PO (12:50)
[2019-06-23] MEDS ORDERED: GABAPENTIN 100100 MG PO (12:51)
[2019-06-23] MEDS ORDERED: SEROQUEL 100 M100 M1 PO (12:51)
[2019-06-23] MEDS ORDERED: MIRALAX17 GM PO (12:52)
[2019-06-23] MEDS ORDERED: SEROQUEL 25 MG25 M1 PO (12:52)
--- NOTE | 2019-06-23 14:23 | NUR ---
SW D/C note NURYS faxed discharge documention to [facility] at [phone]. No other needs for team to address at this time. [address] [address] [phone]
--- NOTE | 2019-06-25 10:58 | D ---
[facility] [place] [address] DISCHARGE SUMMARY Name: VILMA RODRIGUEZ Room #: 523B-B [facility] IN M.R.#: [id number] Admission: 06/16/19 Attend Phys: Sebastien Ferraro DO Discharge: 06/23/19 Date of : 63 Report #: [id number] THIS REPORT FOR: //name// CC: Sebastien Ferraro Ihsan Morgan DATE OF SERVICE: 06/23/2019 INPATIENT PSYCHIATRIC DISCHARGE SUMMARY ATTENDING PHYSICIAN: Sebastien Ferraro DO. NOTE SPECIALIST: Elisabet Reinoso MD DISCHARGE DIAGNOSES: Schizoaffective disorder, bipolar subtype, improved. Medical comorbidities include bilateral ankle pain and lower leg pain, improved with Tylenol 1000 mg by moth three ashley a day and with gabapentin trial; COPD, continuing Pulmicort, albuterol, compensated; seizure disorder, on Keppra, Trileptal; hypertension; BPH med continued; deep venous thrombosis history, on Xarelto; tobacco use disorder, was on nicotine patch, last cigarette was on day of admission. He was on peptic prophylaxis, I believe, due to his GERD and Xarelto. Discharging to the [facility]. He is in their medical part. DISCHARGE MEDICATIONS: Tylenol 1000 mg oral daily at 0900, 1500, 2100 for pain; gabapentin 100 mg p.o. b.i.d. for lower extremity pain; Seroquel 175 mg p.o. b.i.d. for his psychosis and disorganization; polyethylene glycol 17 g p.o. daily dissolved in water for bowel motility; aspirin 81 mg p.o. daily for cardioprotection; Keppra 1000 mg p.o. b.i.d. for seizure protection; oxcarbazepine 300 mg p.o. b.i.d. for seizure disorder. He is on Symbicort 160/4.5 inhaled b.i.d. for COPD; melatonin 5 mg p.o. at bedtime for sleep; trazodone 100 mg p.o. at bedtime for sleep, which is probably made p.r.n. at nursing facility; Xarelto, which is rivaroxaban 20 mg p.o. with dinner for DVT history; amlodipine 5 mg p.o. daily for hypertension. I did discontinue Artane on this admission as well as meloxicam and tramadol. REASON FOR ADMISSION: Kind of bizarre in addition to what is noted in the Emergency Room notes, he was actually sent from [facility] for wrist pain, has had a number of somatic complaints he has been to ER;s for last month and incidntly got admitted to Psychiatry. Nonetheless, in the Emergency Room, he complained of suicidal, homicidal ideation, so that brought him to the psych admission. HOSPITAL COURSE: The patient was admitted to Geriatric Psychiatry Unit. The [address] [address] DISCHARGE SUMMARY Name: VILMA RODRIGUEZ Room #: 523B-B [facility] IN M.R.#: [id number] Admission: 06/16/19 Attend Phys: Sebastien Ferraro DO Discharge: 06/23/19 Date of : 63 Report #: [id number] patient had rather quiescent stay. He did have some bizarre viewpoint such as wanting to ear mask on psych unit he thought his COPD was contagious He also would have somewhat inconsistent somatic complaints such as his knees and his ankles. He requested staff to shave his [place] while he was here, but the patient got atiment about leaving, was at a couple points wanting to just carry his clothes and walk out in the cold and be homeless. I told him this was not an acceptable discharge plan and he was kept until they agreed upon time for him to be sent back to [facility]. LABORATORY WORK: This admission, CBC grossly normal except hemoglobin 13.9. Chemistries; potassium is 5.3, which I would consider normal; otherwise within normal limits. GFR was good. Urine showed some trace blood, ketones, protein. UDS was negative. Alcohol less than 10. EKG on this admission,the last was on 04/04/2019 showed QTC 451, QT 415, WV 130, rate of 71. Interestingly, he had an echo done on 04/04/2019, which I think was pretty normal and left ventricle ejection fraction was 55-60%. VITAL SIGNS: On the day of discharge were temperature 98.1, pulse 78, BP 123/82, O2 sat 100%. MENTAL STATUS EXAMINATION: This is a well-developed, fairly nourished, but disheveled male, appearing stated age. Attention limited. Concentration fair. Speech is normal in rate, volume and tone. Thought process is linear and goal oriented. Thought content focused on discharge. No psychomotor agitation, no psychomotor retardation. Mood and affect were congruent, somewhat flat, but not overtly depressed. Denied SI or HI. Denied hopelessness, helplessness. Memory not formally tested. Insight limited. Judgment limited. Fund of knowledge, no greater than average. PROGNOSIS: For this patient is fair. Will depend on medication compliance. Also, it is my opinion, he would benefit from guardianship due to some of his judgment, has been erratic, but that was beyond the scope of this psychiatric admission. I encourage ____ to pursue that issue. <ELECTRONICALLY SIGNED> By: Sebastien Ferraro DO 06/25/19 1058 1006 1211 Sebastien Ferraro DO /nt
== END 2019-06-23 13:30 | DRG 885 ==
LOC: ER 18:56 → EROBS 23:09 → SBH 23:09
PROVIDERS: Emergency Medicine; ADMIT Psychiatry & Neurology Psychiatry
DX: F25.0 Schizoaffective disorder, bipolar type (principal); R45.851 Suicidal ideations; J44.9 Chronic obstructive pulmonary disease, unspecified; F32.9 Major depressive disorder, single episode, unspecified; F41.9 Anxiety disorder, unspecified; F17.210 Nicotine dependence, cigarettes, uncomplicated; G40.909 Epilepsy, unspecified, not intractable, without status epilepticus; I10 Essential (primary) hypertension; N40.0 Benign prostatic hyperplasia without lower urinary tract symptoms; K21.9 Gastro-esophageal reflux disease without esophagitis; F10.10 Alcohol abuse, uncomplicated; G89.29 Other chronic pain; M25.562 Pain in left knee; M25.561 Pain in right knee; M25.572 Pain in left ankle and joints of left foot; M25.571 Pain in right ankle and joints of right foot; Z91.5 Personal history of self-harm; Z91.030 Bee allergy status; Z88.8 Allergy status to other drugs, medicaments and biological substances; Z86.718 Personal history of other venous thrombosis and embolism; Z79.01 Long term (current) use of anticoagulants; Z79.82 Long term (current) use of aspirin; Z79.899 Other long term (current) drug therapy
CPT/HCPCS: 10880